=== PATIENT | female | born 1955 | race American Indian/Alaskan Native ===

== ENCOUNTER 2018-12-24 14:35 | Inpatient (IN) | payer OTHER ==
--- NOTE | 2018-12-24 16:33 | C.PDOC ---
History Of Present Illness 63 y/o female pt with hx of schizophrenia brought to the hospital by EMS for bizarre behavior. Daughter reports she called 07-19 because pt was exhibiting bizarre behavior. Pt is not compliant with her medications. Pt denies SI, HI, p sychiatric illnesses, medications and according to pt, she says, "ambulance brought me here because my kids were harassing me". Pt also can not recall who called 07-19. Pt has no complaints and just want to be discharged. Time Seen by Provider: 12/24/18 14:58 Chief Complaint (Nursing): Psychiatric Evaluation History Per: Patient History/Exam Limitations: no limitations Onset/Duration Of Symptoms: Hrs Current Symptoms Are (Timing): Still Present Past Medical History Reviewed: Historical Data, Nursing Documentation, Vital Signs Vital Signs: Last Vital Signs Temp 99.3 F 12/24/18 14:41 Pulse 121 H 12/24/18 14:41 Resp BP 124/87 12/24/18 14:41 Pulse Ox 97 12/24/18 14:41 Family History: States: No Known Family Hx - Social History Hx Alcohol Use: No Hx Substance Use: No - Immunization History Hx Tetanus Toxoid Vaccination: No Hx Influenza Vaccination: Yes Hx Pneumococcal Vaccination: No Review Of Systems Constitutional: Positive for: Other (bizarre behavior ) Cardiovascular: Negative for: Chest Pain Respiratory: Negative for: Cough Gastrointestinal: Negative for: Nausea, Vomiting Genitourinary: Negative for: Dysuria, Hematuria Musculoskeletal: Negative for: Back Pain Neurological: Negative for: Weakness, Numbness Psych: Negative for: Anxiety, Psychosis Physical Exam - Physical Exam Appears: Non-toxic, No Acute Distress Skin: Warm, Dry Eye(s): bilateral: Normal Inspection Throat: Normal Neck: Normal ROM, Supple Chest: Symmetrical, No Deformity Cardiovascular: Rhythm Regular Respiratory: Normal Breath Sounds Neurological/Psych: No Oriented x3 (oriented to self and time; disoriented to place ), Other (pressured speech ) ED Course And Treatment - Laboratory Results Result Diagrams: 12/24/18 17:31 12/24/18 17:31 O2 Sat by Pulse Oximetry: 97 (RA) Pulse Ox Interpretation: Normal Medical Decision Making Medical Decision Making: Per daughter, patient has history of schizophrenia, lives alone, and is not taking her medications. Patient denying all psych history, states that her children are harassing her and that nothing is wrong, and that she wants to be discharged home. After speaking to crisis, patient eventually admitted to her psych issues, and agreed to sign in voluntarily. She denies SI/HI. She was medically cleared in the ED, fully evaluated by crisis, and admitted to Dr. Everton ojeda. Disposition - Disposition Disposition: HOSPITALIZED Disposition Time: 19:31 Condition: STABLE - Clinical Impression Clinical Impression: Schizophrenia - Scribe Statement The provider has reviewed the documentation as recorded by the Mikeibemmanuel Chinchilla Do Provider Attestation: All medical record entries made by the Mikeibe were at my direction and personally dictated by me. I have reviewed the chart and agree that the record accurately reflects my personal performance of the history, physical exam, medical decision making, and the department course for this patient. I have also personally directed, reviewed, and agree with the discharge instructions and disposition.
[2018-12-24 17:34] LABS: EOS # 0.1 K/uL (0.0-0.7); EOS % 1.1 % (0.0-4.0); HEMOGLOBIN 12.6 g/dL (11.0-16.0); LYMPH # 1.5 K/uL (1.0-4.3); LYMPH % 33.1 % (20.0-40.0); MEAN CELL VOLUME 90.6 fL (81.0-99.0); MEAN CORPUSCULAR HEMOGLOBIN 29.6 pg (27.0-31.0); MEAN CORPUSCULAR HGB CONC 32.7 g/dL (33.0-37.0); MEAN PLATELET VOLUME 6.5 fL (7.2-11.7); MONO # 0.4 K/uL (0.0-0.8); MONO % 8.3 % (0.0-10.0); NEUT # 2.6 K/uL (1.8-7.0); NEUT % 56.5 % (50.0-75.0); RBC 4.25 Mil/uL (3.80-5.20); RED CELL DISTRIBUTION WIDTH 13.1 % (11.5-14.5); WHITE BLOOD COUNT 4.5 K/uL (4.8-10.8)
[2018-12-24 17:51] LABS: ALB/GLOB RATIO 1.6 (1.0-2.1); ALBUMIN 4.4 g/dL (3.5-5.0); ALT/SGPT 29 U/L (9-52); AST/SGOT 31 U/L (14-36); BLOOD UREA NITROGEN 12 mg/dL (7-17); CALCIUM 9.1 mg/dl (8.6-10.4); GFR NON-AFRICAN AMERICAN > 60
[2018-12-24 18:14] LABS: SQUAMOUS EPITHIAL 1 /hpf (0-5); URINE BACTERIA RARE (<OCC); URINE BILIRUBIN NEGATIVE (NEGATIVE); URINE BLOOD NEGATIVE (NEGATIVE); URINE CLARITY Hazy (Clear); URINE COLOR Yellow (YELLOW); URINE GLUCOSE (UA) NORMAL (Normal); URINE LEUKOCYTE ESTERASE NEG Leu/uL (Negative); URINE PROTEIN 1+ mg/dL (NEGATIVE)
[2018-12-24 18:22] LABS: BARBITURATES, UR NEGATIVE (NEGATIVE); BENZODIAZEPINES, UR NEGATIVE (NEGATIVE); OPIATES, UR NEGATIVE (NEGATIVE); PHENCYCLIDINE, UR NEGATIVE (NEGATIVE)
--- NOTE | 2018-12-24 22:48 | PCM.BM ---
<Giuseppe Pierce - Last Filed: 12/24/18 22:46> Treatment Plan Problems - Problems identified on initial assessmt Schizophrenia Date Initiated: 12/24/18 Time Initiated: 22:46 Assessment reference: NA Altered thought process Date Initiated: 12/24/18 Time Initiated: 22:47 Assessment reference: NA Treatment assets and liabiliti Patient Assests: cooperative, self-reliant, ADL independent, physically healthy, good support system, negotiates basic needs Patient Liabilities: live alone, relationship conflicts (Conflicts with family), substance abuse (Marijuana), imparied memory (Unaware of year or date), other (Lacks insight, believes there is nothing wrong with her) - Milieu Protocol Maintain good personal hygiene: daily Encourage regular showers, daily Remind patient to perform daily oral care, every shift Assist patient to perform ADL's Conduct patient checks and document Observation sheet: Q15 minutes (For safety) Maintain personal safety: every shift Educate patient to report safety concerns to staff, every shift Monitor environment for contraband/sharps Medication safety: Monitor for expected outcome, potential side effects: every shift, Assess barriers to learning: every shift, Assess readiness for medication education: every shift <Stephanie Freire - Last Filed: 12/26/18 11:41> Family Contact Family involvement: Family/SO is involved Family contact: Patient agrees to contact Family contact name: Ruby Godoy-daughter Family contacted how many times per week?: 1 - Goals for Treatment Patient goals for treatment: "I want to leave." Discharge/Continuing Care - Education Needs Education Needs: Patient Medication, Patient Coping Skills - Discharge Discharge Criteria: Tolerates medication w/o severe side effects, Reduction of target symptoms Discharge to:: Home - Treatment Team Participation Discussed with Family/SO: No Was Patient/Family/SO present at Treatment Team Meeting: Yes <Jelena Min - Last Filed: 12/28/18 11:01> - Diagnosis (1) Schizophrenia Status: Acute Interventions: 12/28/18 11:01 * Assess/adjust medications daily and /or as needed * See patient on an individual basis 7x/week to assess status of hallucinations * Discuss risks, benefits, side effects and alternatives of medications *
[2018-12-25 06:40] VITALS: RESP 20
--- NOTE | 2018-12-25 09:59 | PCM.PSYCH ---
Initial Psychiatric Evaluation - Initial Psychiatric Evaluation Type of Admission: Voluntary Legal Status: Capacity Chief Complaint (in patient's own words): I was hearing voices.' History of Present Illness and Precipitating Events: Patient is a 62 year old AAF, who was escorted to the ED, when family called 911, because of a very disorganized and internally preoccupied behavior. As per collateral, patient has history of multiple inpatient psychiatric hospitalizations including [facility]. Patient reports of history of follow-up in the past but denies taking any psych medications now. Patient remained disorganized and internally preoccupied throughout the interview. She remained a poor historian. She was superficially cooperative but guarded about the details. Patient reported that she came to the hospital because her family had some concerns. She however she appeared very paranoid, delusional and psychotic. When asked about the psych medication she said that she is allergic to psych meds and she does not want to take anything. She remained confined to room. As per the staff she was talking to herself and was making a one-way conversation whole night. She remained disheveled and un kempt. She denies abusing any drugs or any drinking. Past medical history None reported Current Medications: Active Medications Generic Name Dose Route Start Last Admin Trade Name Freq PRN Reason Stop Dose Admin Pneumococcal Polyvalent Vaccine 0.5 ml 12/26/18 10:00 Pneumovax 23 Vaccine IM 12/26/18 10:01 .ONCE ONE Past Psychiatric History - Past Psychiatric History Previous Treatment History: Inpatient Pertinent Medical Hx (Current Medical&Sleep Prob, Allergies): Allergies Allergy/AdvReac Type Severity Reaction Status Date / Time No Known Allergies Allergy Unverified 12/24/18 16:47 Unobtainable 12/24/18 Review of Systems - Review of Systems All systems: reviewed and no additional remarkable complaints except - Psychiatric Psychiatric: Anxiety, Mood Swings, Paranoia Mental Status Examination - Personal Presentation Personal Presentation: Looks stated age - Affect Affect: Constricted, Depressed - Motor Activity Motor Activity: Calm - Reliability in Providing Information Reliability in Providing Information: Poor, due to alteration in thoughts - Speech Speech: Disorganized - Mood Mood: Anxious - Formal Thought Process Formal Thought Process: Hallucinations, Delusions, Paranoia, Loosening of associations - Hallucinations/Delusions Hallucinations: Auditory Delusions: Persecution - Obsessions/Compulsions Obsessions: No Compulsions: No - Cognitive Functions Orientation: Person, Place, Situation, Time Sensorium: Alert Attention/Concentration: Attentive Abstract Thinking: [place] Estimate of Intelligence: Below average Judgement: Imparied, as evidence by: Poor judgement, Imparied, as evidence by: Lack of insight into illness - Risk Risk: Suicidal, Diminished functioning - Limitations Limitations: Living alone DSM 5 DX - DSM 5 DSM 5 Diagnosis: Schizophrenia paranoid type continues - Recommended/Plan of Treatment Treatment Recommendations and Plan of Treatment: Schizophrenia paranoid type continues CBT Psychoeducation Supportive therapy and group therapy Prolixin for psychosis Cogentin for EPS Neurontin for augmentation Clonazepam for anxiety Trazodone for insomnia Hydroxyzine for anxiety Neurontin for augmentation - Smoking Cessation Smoking Cessation Initiated: No
[2018-12-26] MEDS ORDERED: Pneumococcal 23-Valent Vaccine IM ONE (10:00)
--- NOTE | 2018-12-26 12:49 | PCM.PYCHPN ---
Psychiatric Progress Note - Psychiatric Progress Note Patient seen today, length of contact: 16 min Patient Chief Complaint: "I'm fine" Problems Identified/Issues Discussed: The pt is seen, chart reviewed, case discussed with staff. Support and psychoeducation given She is refusing meds but she is VERY psychotic; disorganized, bizarrre, has no insight, thought disordered and could be a risk b/c she blames her family She will be screened IF she continues to refuse meds Medication Change: Yes (dc klonopin and gabapentin (refusing)) Medical Record Reviewed: Yes Mental Status Examination - Cognitive Function Orientation: Person, Place, Situation, Time Memory: Impaired Attention: Poor Concentration: Poor Association: Loose Fund of Knowledge: Poor - Mood Mood: Other (irate) - Affect Affect: Constricted, Blunted - Speech Speech: Loud - Formal Thought Process Formal Thought Process: Hallucinations, Delusions, Paranoia, Loosening of associations - Suicidal Ideation Suicidal Ideation: No - Homicidal Ideation Homicidal Ideation: No Goal/Treatment Plan - Goal/Treatment Plan Need for Continued Stay: Discharge may exacerbated symptoms, Severe functional impairment, Other (severe psychosis) Progress Toward Problem(s) and Goals/Treatment Plan: [facility] screening f she keeps refuseing Psychoed Support Prolixin Consider decanoate too
--- NOTE | 2018-12-26 14:03 | RAD ---
HISTORY: Clearance for invol commitment COMPARISON: Chest x-ray performed 05/29/14 TECHNIQUE: Chest PA and lateral FINDINGS: LUNGS: No focal consolidation. Please note that chest x-ray has limited sensitivity for the detection of pulmonary masses. PLEURA: No significant pleural effusion identified. No definite pneumothorax . CARDIOVASCULAR: The cardiomediastinal silhouette appears within normal limits of size. Atherosclerotic calcifications of the aortic knob. OSSEOUS STRUCTURES: Degenerative changes of the spine. VISUALIZED UPPER ABDOMEN: Unremarkable. OTHER FINDINGS: None. IMPRESSION: No focal consolidation.
[2018-12-26] MEDS ORDERED: Pantoprazole 20 mg EC Tab PO ONE (21:42)
[2018-12-27] MEDS: Pantoprazole 40 mg EC Tab PO SCH (09:12)
--- NOTE | 2018-12-27 10:33 | PCM.PYCHPN ---
Psychiatric Progress Note - Psychiatric Progress Note Patient seen today, length of contact: 16 min Patient Chief Complaint: I was hearing voices. Problems Identified/Issues Discussed: Patient was seen and evaluated, chart reviewed and discussed with the staff. As per the staff patient was talking to herself but was making a one-way conversation whole night. She still appears very disheveled and unkempt. She still appears disorganized and internally preoccupied. As per staff, they found her at times responding to internal stimuli. She is refusing to take any medications and believes that she does not want any medication. She needs to stay longer for the stabilization of the symptoms Supportive therapy was given. Medication Change: Yes (dc klonopin and gabapentin (refusing)) Medical Record Reviewed: Yes Mental Status Examination - Cognitive Function Orientation: Person, Place, Situation, Time Memory: Impaired Attention: Poor Concentration: Poor Association: Loose Fund of Knowledge: Poor - Mood Mood: Other (irate) - Affect Affect: Constricted, Blunted - Speech Speech: Loud - Formal Thought Process Formal Thought Process: Hallucinations, Delusions, Paranoia, Loosening of associations - Suicidal Ideation Suicidal Ideation: No - Homicidal Ideation Homicidal Ideation: No Goal/Treatment Plan - Goal/Treatment Plan Need for Continued Stay: Discharge may exacerbated symptoms, Severe functional impairment, Other (severe psychosis) Progress Toward Problem(s) and Goals/Treatment Plan: Schizophrenia paranoid type continues CBT Psychoeducation Supportive therapy and group therapy Prolixin for psychosis Cogentin for EPS Neurontin for augmentation Clonazepam for anxiety Trazodone for insomnia Hydroxyzine for anxiety Neurontin for augmentation - Smoking Cessation Smoking Cessation Initiated: No
[2018-12-27 23:06] LABS: SQUAMOUS EPITHIAL 2 /hpf (0-5); URINE BACTERIA OCC (<OCC); URINE BILIRUBIN NEGATIVE (NEGATIVE); URINE BLOOD NEGATIVE (NEGATIVE); URINE CLARITY Clear (Clear); URINE COLOR Yellow (YELLOW); URINE GLUCOSE (UA) NORMAL (Normal); URINE LEUKOCYTE ESTERASE TRACE Leu/uL (Negative); URINE PROTEIN NEGATIVE (NEGATIVE); URINE UROBILINOGEN NORMAL mg/dL (0.2-1.0)
--- NOTE | 2018-12-28 09:52 | PCM.PYCHPN ---
Psychiatric Progress Note - Psychiatric Progress Note Patient seen today, length of contact: 16 min Patient Chief Complaint: I m feeling mallika.' Problems Identified/Issues Discussed: Patient was seen and evaluated, chart reviewed and discussed with the staff. She still appears disorganized and internally preoccupied. She still appears disheveled and unkempt. As per staff, she is still responding to internal stimuli. She is refusing to take any medications and believes that she does not want any medication. She needs to stay longer for the stabilization of the symptoms Supportive therapy was given. [place] [facility] [place] Medication Change: Yes Medical Record Reviewed: Yes Mental Status Examination - Cognitive Function Orientation: Person, Place, Situation, Time Memory: Impaired Attention: Poor Concentration: Poor Association: Loose Fund of Knowledge: Poor - Mood Mood: Anxious - Affect Affect: Constricted, Blunted - Speech Speech: Loud - Formal Thought Process Formal Thought Process: Delusions, Paranoia, Loosening of associations - Suicidal Ideation Suicidal Ideation: No - Homicidal Ideation Homicidal Ideation: No Goal/Treatment Plan - Goal/Treatment Plan Need for Continued Stay: Discharge may exacerbated symptoms, Severe functional impairment, Other (severe psychosis) Progress Toward Problem(s) and Goals/Treatment Plan: Schizophrenia paranoid type continues -CBT -Psychoeducation -Supportive therapy and group therapy -Prolixin for psychosis -Cogentin for EPS -Neurontin for augmentation -Clonazepam for anxiety -Trazodone for insomnia -Hydroxyzine for anxiety Pt [place] for the [place] [facility]
[2018-12-28] MEDS: Pantoprazole 40 mg EC Tab PO SCH (09:57)
[2018-12-29 06:21] VITALS: O2SAT 96
[2018-12-29] MEDS: Pantoprazole 40 mg EC Tab PO SCH (10:49)
--- NOTE | 2018-12-29 11:17 | PCM.PYCHPN ---
Psychiatric Progress Note - Psychiatric Progress Note Patient seen today, length of contact: 16 min Patient Chief Complaint: I m feeling mallika.' Problems Identified/Issues Discussed: Patient was seen and evaluated, chart reviewed and discussed with the staff. She still appears disorganized and internally preoccupied. She still appears disheveled and unkempt. As per staff, she is still responding to internal stimuli. She is refusing to take any medications and believes that she does not want any medication. She needs to stay longer for the stabilization of the symptoms Supportive therapy was given. [place] [facility] [place]. Medication Change: Yes Medical Record Reviewed: Yes Mental Status Examination - Cognitive Function Orientation: Person, Place, Situation, Time Memory: Impaired Attention: Poor Concentration: Poor Association: Loose Fund of Knowledge: Poor - Mood Mood: Anxious - Affect Affect: Constricted, Blunted - Speech Speech: Loud - Formal Thought Process Formal Thought Process: Delusions, Paranoia, Loosening of associations - Suicidal Ideation Suicidal Ideation: No - Homicidal Ideation Homicidal Ideation: No Goal/Treatment Plan - Goal/Treatment Plan Need for Continued Stay: Discharge may exacerbated symptoms, Severe functional impairment, Other (severe psychosis) Progress Toward Problem(s) and Goals/Treatment Plan: Schizophrenia paranoid type continues -CBT -Psychoeducation -Supportive therapy and group therapy -Prolixin for psychosis -Cogentin for EPS -Neurontin for augmentation -Clonazepam for anxiety -Trazodone for insomnia -Hydroxyzine for anxiety Pt waiting for the bed [place] [facility]
[2018-12-30 02:35] VITALS: BP 111/76; PULSE 90; TEMP 98.6
--- NOTE | 2018-12-30 12:36 | PCM.PYCHDC ---
Mental Status Examination - Mental Status Examination Orientation: Person, Place, Situation, Time Memory: Intact Mood: Anxious Affect: Broad Speech: Pressured Attention: Poor Concentration: Poor Association: Loose Formal Thought Process: Delusions, Paranoia, Loosening of associations Description of patient's judgement and insight: poor, impaired Psychotic Thoughts and Behaviors: still reports of hearing voices Suicidal Ideation: No Current Homicidal Ideation?: No Discharge Summary - Discharge Note Reason for Hospitalization: Patient is a 62 year old AAF, who was escorted to the ED, when family called 911, because of a very disorganized and internally preoccupied behavior. As per collateral, patient has history of multiple inpatient psychiatric hospitalizations including [facility]. Patient reports of history of follow-up in the past but denies taking any psych medications now. Patient remained disorganized and internally preoccupied throughout the interview. She remained a poor historian. She was superficially cooperative but guarded about the details. Patient reported that she came to the hospital because her family had some concerns. She however she appeared very paranoid, delusional and psychotic. When asked about the psych medication she said that she is allergic to psych meds and she does not want to take anything. She remained confined to room. As per the staff she was talking to herself and was making a one-way conversation whole night. She remained disheveled and unkempt. She denies abusing any drugs or any drinking. Consultations:: List each consultation separately and include: 1. Reason for request. 2. Findings. 3. Follow-up Summary of Hospital Course include:: 1. Description of specific treatment plan utilized for patients during their course of treatmen. 2. Summarize the time- course for resolution of acute symptoms and/or regressed behaviors. 3. Describe issues identified and worked on during hospitalization. 4. Describe medication utilized. 5. Describe medical problems identified and treated. 6. Reassessment of suicide risk Summary of Hospital Course: During the course of her stay, patient (pt) remained disorganized and internally preoccupied. She remained paranoid and delusional. She was screened and accepted by the [facility]. Pt was transferred to the [facility] for the continuation of care. - Diagnosis (1) Schizophrenia Status: Acute - Final Diagnosis (DSM 5) Condition upon Discharge: GUARDED DSM 5: Schizophrenia paranoid type continues Disposition: [facility]CHARGE TO [facility] Follow-up Treatment Plan: Pt will follow up with the [facility] IDT. - Smoking Cessation Smoking Cessation Medication prescribed: No - Antipsychotic Medications Pt discharged on 2 or more routine antipsychotic medications: No
== END 2018-12-30 01:45 | disposition designated cancer center or children's hospital (05) | DRG 885 ==
LOC: C.ER 14:35 → C.5E 19:30
PROVIDERS: ADMIT Psychiatry & Neurology Psychiatry; ATTEND Psychiatry & Neurology Psychiatry
PROC: GZHZZZZ Group Psychotherapy (ICD-10-PCS; principal; 2018-12-24)
PROC: GZ58ZZZ Individual Psychotherapy, Cognitive-Behavioral (ICD-10-PCS; 2018-12-24)
PROC: GZ56ZZZ Individual Psychotherapy, Supportive (ICD-10-PCS; 2018-12-24)
DX: F20.0 Paranoid schizophrenia (principal); F41.9 Anxiety disorder, unspecified; F39 Unspecified mood [affective] disorder; G47.00 Insomnia, unspecified; Z91.14 Patient's other noncompliance with medication regimen